=== PATIENT | female | born 1980 | race Caucasian/White ===

== ENCOUNTER 2018-02-17 13:52 | Emergency (ER) | payer MEDICAID ==
[~2018-02-17] VITALS: Ht 160 cm; Wt 56.8 kg
[~2018-02-17 13:52] MED LIST: CLAR10CA3 PO; CONCCAP2 PO; IBUP-232 PO; OXYC1TAB63 PO; SENN1TAB PO
[2018-02-17 13:57] VITALS: BP 159/87; PULSE 71; RESP 18; TEMP 98.6; O2SAT 97
[2018-02-17] MEDS ORDERED: FLUT1SPR5 EACH NARE (14:07)
--- NOTE | 2018-02-17 14:15 | PD ---
HPI Chief Complaint: Cold / Flu Symptoms Time Seen by Provider: 14:10 Travel History International Travel<30 days: No Contact w/Intl Traveler<30days: No Traveled to known affect area: No History of Present Illness HPI 37-year-old female came to the emergency room with history of cough, sore throat , not feeling well and upper back pain from too much coughing for past 1 week. Patient says she just cannot seem to shake it off. Her son was sick and she thinks she may have caught it from him but her son is getting better now. Vital signs are stable. Patient says the maximum temperature she had was 99.9 which was 3 days ago. She does suffer from seasonal allergies and has been taking Flonase. Patient is also a smoker. [facility] [place] Past Medical History Narrative Medical List of her past medical, surgical, social and family history is reviewed from the nursing note Respiratory: Yes (ALLERGIES) Tetanus Vaccination: < 5 Years ?: Not : 1 Para: 1 Tubal Ligation: Yes Past Surgical History Section: Yes Social History Alcohol Use: No Tobacco Use: Yes (3-5 cig/day) Substance Use: No Allergies-Medications (Allergen,Severity, Reaction): Coded Allergies: No Known Allergies (Verified Adverse Reaction, Unknown, 02/17/18) Comments No known drug allergies Reported Meds & Prescriptions Reported Meds & Active Scripts Active Zyrtec (Cetirizine HCl) 10 Mg Capsule 1 Tab PO DAILY 30 Days Ventolin Hfa 18 GM Inh (Albuterol Sulfate) 90 Mcg/Act Aer 2 Puff INH Q4-6H PRN Reported Flonase Nasal Anderson (Fluticasone Nasal Anderson) 50 Mcg/Act Anderson 100 Mcg EACH NARE BID Narrative Medication List of her home medications reviewed from the nursing note. Review of Systems Except as stated in HPI: all other systems reviewed are Neg HENT: Positive: Sore Throat Respiratory: Positive: Cough Musculoskeletal: Positive: Pain Physical Exam Narrative GENERAL: Awake, alert, moderate distress SKIN: Focused skin assessment warm/dry. HEAD: Atraumatic. Normocephalic. EYES: Pupils equal and round. No scleral icterus. No injection or drainage. ENT: No nasal bleeding or discharge. Mucous membranes pink and moist. Slight erythema of the pharynx without any exudates. NECK: Trachea midline. No JVD. CARDIOVASCULAR: Regular rate and rhythm. No murmur appreciated. RESPIRATORY: No accessory muscle use. Clear to auscultation. Breath sounds equal bilaterally. GASTROINTESTINAL: Abdomen soft, non-tender, nondistended. Hepatic and splenic margins not palpable. MUSCULOSKELETAL: No obvious deformities. No clubbing. No cyanosis. No edema. NEUROLOGICAL: Awake and alert. No obvious cranial nerve deficits. Motor grossly within normal limits. Normal speech. PSYCHIATRIC: Appropriate mood and affect; insight and judgment normal. Data Data Last Documented VS Orders Orders Chest, Pa & Lat (02/17/18 ) Group A Rapid Strep Screen (02/17/18 14:18) Influenzae A/B Antigen (02/17/18 14:18) Albuterol Neb (Albuterol Neb) (02/17/18 14:30) Ibuprofen (Motrin) (02/17/18 14:30) Strep Culture (Group A) (02/17/18 14:30) Ed Discharge Order (02/17/18 15:32) MDM Medical Decision Making Medical Screen Exam Complete: Yes Emergency Medical Condition: Yes Medical Record Reviewed: Yes Differential Diagnosis Viral illness, influenza, strep throat, pneumonia Narrative Course 2:29 PM awaiting for chest x-ray and the other test results. Patient will get 1 DuoNeb treatment. Procedures EKG Prior to Arrival: No Diagnosis Primary Impression: Seasonal allergies Additional Impressions: Viral illness Needs smoking cessation education Referrals: Primary Care Physician 3 days Additional Instructions: Take the medications as per prescription direction. Follow-up with your primary care. You can take Tylenol/Advil/ibuprofen/Motrin for pain relief as needed. These medications are available [id number]. Drink lots of fluid to stay hydrated. He should quit smoking in order to feel better. Otherwise the medications offered to you will not be much helpful. Med/Other Pt SpecificInfo: Prescription(s) given Scripts Cetirizine HCl (Zyrtec) 10 Mg Capsule 1 TAB PO DAILY for 30 Days Prov: Alcides Rich MD 02/17/18 Albuterol 18 GM Inh (Ventolin Hfa 18 GM Inh) 90 Mcg/Act Aer 2 PUFF INH Q4-6H Y for SHORTNESS OF BREATH, #1 INHALER 0 Refills Prov: Alcides Rich MD 02/17/18 Disposition: 01 DISCHARGE HOME Condition: Stable Alcides Rich MD February 17, 2018 14:15
[2018-02-17] MEDS ORDERED: IBUPROFEN 600 MG TAB PO ONE (14:30)
[2018-02-17] MEDS ORDERED: RESP: ALBUTEROL 2.5 MG/3 ML NEB (SCH) NEB ONE (14:30)
--- NOTE | 2018-02-17 15:29 | RADRPT ---
EXAM DATE/TIME: 02/17/2018 15:11 [place] COMPARISON: No previous studies available for comparison. INDICATIONS : Cough and congestion for 6 days. MEDICAL HISTORY : None. SURGICAL HISTORY : None. ENCOUNTER: Initial ACUITY: 4 - 6 days PAIN SCORE: 3/10 LOCATION: Bilateral chest FINDINGS: PA and lateral views of the chest demonstrate the lungs to be symmetrically aerated without evidence of mass, infiltrate or effusion. The cardiomediastinal contours are unremarkable. Osseous structure s are intact. CONCLUSION: No acute cardiopulmonary process. Michael Lewis MD on February 17, 2018 at 15:26 Board Certified Radiologist. This report was verified electronically.
[2018-02-17] MEDS ORDERED: CETI10CA3 PO (15:31)
[2018-02-17] MEDS ORDERED: VENTAER INH (15:31)
== END 2018-02-17 15:47 | disposition home or self-care (01) ==
LOC: NEPD 13:52
DX: J30.2 Other seasonal allergic rhinitis (principal); B34.9 Viral infection, unspecified; Z72.0 Tobacco use
CPT/HCPCS: 71046; 87081; 87804; 87880; 94664; 99284; J7613